=== PATIENT | female | born 1950 | race Hispanic/Latino ===

== ENCOUNTER → 2017-11-21 | Outpatient (CLI) | payer MEDICARE, BC ==
[~2017-11-21] MED LIST: ATIVAN2 MG PO; DIATRIZOATE MEGL/DIATRIZOA SOD 30 ML BTL PO ONE; IOPAMIDOL 370 MG/ML 200 ML INFUS..BTL INJ ONE; LEVOTHYROXINE75 MCG PO; SODIUM CHLORIDE 0.9% 50ML 50 ML ONE; ZOLOFT100 MG PO
[2017-11-21 16:07] LABS: BLOOD UREA NITROGEN 9 mg/dL (7-26); BUN/CREATININE RATIO 11 (6-25); CREATININE, SERUM 0.79 mg/dL (0.57-1.11); EST GLOMERULAR FILTRATION RATE > 60 ML/MIN (60-)
--- NOTE | 2017-11-21 17:49 | Diagnostic Imaging Report ---
PROCEDURE: CT ABDOMEN AND PELVIS WITH CONTRAST TECHNIQUE: The abdomen and pelvis were scanned utilizing a multidetector helical scanner from the diaphragm to the lesser trochanter after the IV administration of 100 cc of Isovue 370 and the oral administration of Gastroview. Coronal and sagittal multiplanar reformations were obtained. COMPARISON: None. INDICATIONS: Generalized abdominal pain. Reported history of prolapsed bladder. FINDINGS: LOWER THORAX: Normal. HEPATOBILIARY: Scattered subcentimeter hypodensities in the liver are too small to characterize, but probably represent cysts. The common bile duct is mildly dilated, measuring 1.0 cm.. SPLEEN: No splenomegaly. PANCREAS: No focal masses or ductal dilatation. There is relative atrophy of the pancreatic head ADRENALS: No adrenal nodules. KIDNEYS/URETERS: The left kidney is absent. No hydronephrosis, stones, or solid mass lesions in the right kidney. PELVIC ORGANS/BLADDER: There has been a hysterectomy. There is a 2.1 cm fluid density lesion in the left adnexum (series 2, image 73). PERITONEUM / RETROPERITONEUM: No free air or fluid. LYMPH NODES: No lymphadenopathy. VESSELS: Mild atherosclerotic calcifications of the aorta and its branches. GI TRACT: No distention or wall thickening. There are a few sigmoid diverticula without evidence of acute inflammation. No appendix is visualized. BONES AND SOFT TISSUES: Degenerative changes at L5-S1. IMPRESSION: Mild dilatation of the common bile duct, measuring up to 1.0 cm. Consider right upper quadrant ultrasound to evaluate for gallstones. Subcentimeter hypodensities in the liver are too small to characterize. Assuming no history of malignancy or chronic hepatitis, these most likely represent small cysts. Status post hysterectomy. There is a 2.1 cm fluid density lesion in the left adnexum which may represent an ovarian cyst. Consider pelvic ultrasound for further evaluation. Dictated by: Jakub Doll M.D. on 11/21/2017 at 17:56 Electronically approved by: Jakub Doll M.D. on 11/21/2017 at 17:56
== END ==
LOC: CT 15:26
PROVIDERS: ATTEND Surgery
DX: R10.30 Lower abdominal pain, unspecified (principal)
CPT/HCPCS: 36415; 74177; 82565; 84520; Q9967

== ENCOUNTER → 2024-11-12 | Day surgery (SDC) | payer MEDICARE, BC ==
[2024-11-10 13:33] LABS: BASOPHILS % 1.0 % (0.0-1.0); EOSINOPHILS % 5.1 % (0.0-6.0); LYMPHOCYTES % 36.4 % (18.0-39.1); MONOCYTES % 5.9 % (4.4-11.3); NEUTROPHILS % 51.5 % (38.7-80.0); RED CELL DISTRIBUTION WIDTH 12.1 % (11.7-14.4)
[2024-11-10 14:01] LABS: EST GLOMERULAR FILTRATION RATE 57.0 ML/MIN (>=60)
[~2024-11-12] MED LIST changes: -DIATRIZOATE MEGL/DIATRIZOA SOD 30 ML BTL PO ONE; +DULOXETINE HCL20 MG PO; +HYDROXYZINE HCL10 MG PO; -IOPAMIDOL 370 MG/ML 200 ML INFUS..BTL INJ ONE; +LIDOCAINE HCL 2% LOCAL INJ 5 ML SDV VIAL INJ ONE; +OXYCODONE HCL20 M1 PO; +PROPOFOL IV EMULSION 10 MG/ML 20 ML VIAL ONE; -SODIUM CHLORIDE 0.9% 50ML 50 ML ONE
[2024-11-12] MEDS: LACTATED RINGER'S 1,000 ML ONE (07:50)
[2024-11-12 10:16] VITALS: BP 122/64; PULSE 72; RESP 17; O2SAT 98
== END | disposition home or self-care (01) ==
LOC: OR 06:28
PROVIDERS: ATTEND Surgery
DX: R10.32 Left lower quadrant pain (principal); D12.2 Benign neoplasm of ascending colon; D12.3 Benign neoplasm of transverse colon; R19.5 Other fecal abnormalities; K57.30 Diverticulosis of large intestine without perforation or abscess without bleeding; K58.9 Irritable bowel syndrome, unspecified; E03.9 Hypothyroidism, unspecified; M26.609 Unspecified temporomandibular joint disorder, unspecified side; F41.9 Anxiety disorder, unspecified; F32.A Depression, unspecified; M06.9 Rheumatoid arthritis, unspecified; M19.90 Unspecified osteoarthritis, unspecified site; Z01.810 Encounter for preprocedural cardiovascular examination; Z01.812 Encounter for preprocedural laboratory examination; Z01.818 Encounter for other preprocedural examination; Z79.82 Long term (current) use of aspirin; Z79.1 Long term (current) use of non-steroidal anti-inflammatories (NSAID)
CPT/HCPCS: 36415; 45380; 71046; 80053; 85025; 88305; 93005; J2003; J2704; J7121